=== PATIENT | female | born 1995 | race Caucasian/White ===

== ENCOUNTER 2022-06-24 15:31 | Emergency (ER) | payer OTHER ==
[~2022-06-24] VITALS: Ht 172.7 cm; Wt 63.6 kg
[2022-06-24 15:40] VITALS: BP 155/87
== END 2022-06-24 17:56 | disposition home or self-care (01) ==
LOC: ER 15:31
DX: S13.4XXA Sprain of ligaments of cervical spine, initial encounter (principal); V59.49XA Driver of pick-up truck or van injured in collision with other motor vehicles in traffic accident, initial encounter; Y93.89 Activity, other specified; Y92.89 Other specified places as the place of occurrence of the external cause; Y99.8 Other external cause status
CPT/HCPCS: 99282